=== PATIENT | female | born 1985 | race Hispanic/Latino ===

== ENCOUNTER 2018-07-16 15:28 | Outpatient (CLI) | payer OTHER | END 2018-07-16 15:29 | disposition home or self-care (01) | LOC: BICRAD 15:28 | PROVIDERS: ATTEND Chiropractor | DX: M54.5 Low back pain (principal) | CPT/HCPCS: 72100 ==

== ENCOUNTER 2021-03-24 13:37 | Outpatient (CLI) | payer OTHER | END 2021-03-24 13:38 | disposition home or self-care (01) | LOC: BICULT 13:37 | PROVIDERS: ATTEND Family Medicine | DX: E01.0 Iodine-deficiency related diffuse (endemic) goiter (principal) | CPT/HCPCS: 76536 ==